=== PATIENT | male | born 2000 | race Caucasian/White ===

== ENCOUNTER 2023-09-14 16:18 | Emergency (ER) | payer OTHER ==
[2023-09-14 16:52] VITALS: BP 130/83; TEMP 97.4
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
[2023-09-14] MEDS: DIPH,PERTUS(ACELL)TETVAC-LF 0.5 ML VIAL IM ONE (17:59)
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
[2023-09-14 18:06] VITALS: PULSE 105
[2023-09-14 18:45] VITALS: RESP 16
[2023-09-14] MEDS: KETOROLAC 15 MG/ML 1 ML VIAL IM STA (19:43)
== END 2023-09-14 20:10 | disposition home or self-care (01) ==
LOC: EC 16:18
DX: T74.21XA Adult sexual abuse, confirmed, initial encounter (principal); F17.200 Nicotine dependence, unspecified, uncomplicated; Z23 Encounter for immunization
CPT/HCPCS: 72125; 70450; 90715; 99285; 90471; 96372; J1885